=== PATIENT | female | born 1945 | race Caucasian/White ===

== ENCOUNTER → 2016-11-29 | Outpatient (CLI) | payer OTHER ==
[~2016-11-29] MED LIST: ASPIR 8181 MG PO; BACTRIM DS TAB1 EACH PO; CALTRATE 600 +1 EAC1 PO; LEVOTHYROXINE100 MCG PO; LORAZEPAM0.5 MG PO; MEDROL DOSEPAK 24 MG PO; MONTELUKAST SOD10 MG PO; NORVASC 5 MG TAB5 MG PO; OMEPRAZOLE20 M1 PO; OMNICEF 300 MG300 MG PO; SERTRALINE HCL50 MG PO; TENORMIN 50 MG50 MG PO; TESSALON PERLE100 MG PO
== END ==
LOC: MAMO 11-08 15:20
DX: Z12.31 Encounter for screening mammogram for malignant neoplasm of breast (principal)
CPT/HCPCS: G0202

== ENCOUNTER → 2017-01-03 | Day surgery (SDC) | payer OTHER | END | disposition home or self-care (01) | LOC: OR 06:48 | PROVIDERS: Internal Medicine Gastroenterology | PROC: 0DBN8ZX Excision of Sigmoid Colon, Via Natural or Artificial Opening Endoscopic, Diagnostic (ICD-10-PCS; 2017-01-03) | PROC: 0DBE8ZX Excision of Large Intestine, Via Natural or Artificial Opening Endoscopic, Diagnostic (ICD-10-PCS; 2017-01-03) | PROC: 0DBB8ZX Excision of Ileum, Via Natural or Artificial Opening Endoscopic, Diagnostic (ICD-10-PCS; 2017-01-03) | PROC: 0DBH8ZX Excision of Cecum, Via Natural or Artificial Opening Endoscopic, Diagnostic (ICD-10-PCS; 2017-01-03) | PROC: 0DBK8ZX Excision of Ascending Colon, Via Natural or Artificial Opening Endoscopic, Diagnostic (ICD-10-PCS; principal; 2017-01-03 09:00) | DX: D12.0 Benign neoplasm of cecum (principal); D12.5 Benign neoplasm of sigmoid colon; K63.5 Polyp of colon; K64.0 First degree hemorrhoids; I10 Essential (primary) hypertension; E07.9 Disorder of thyroid, unspecified; K21.9 Gastro-esophageal reflux disease without esophagitis; M19.90 Unspecified osteoarthritis, unspecified site; Z79.82 Long term (current) use of aspirin; Z79.899 Other long term (current) drug therapy; Z86.718 Personal history of other venous thrombosis and embolism; Z86.73 Personal history of transient ischemic attack (TIA), and cerebral infarction without residual deficits; Z90.710 Acquired absence of both cervix and uterus; Z98.41 Cataract extraction status, right eye; Z98.42 Cataract extraction status, left eye | CPT/HCPCS: J7030 ==

== ENCOUNTER 2017-01-20 20:44 | Inpatient (IN) | payer OTHER ==
[~2017-01-20] VITALS: Ht 167.6 cm; Wt 80.7 kg
[~2017-01-20 20:44] MED LIST changes: -BACTRIM DS TAB1 EACH PO; -MEDROL DOSEPAK 24 MG PO; -OMNICEF 300 MG300 MG PO; -TESSALON PERLE100 MG PO
[2017-01-20 22:33] LABS: HEMOGLOBIN 14.6 gm/dl (12.3-15.3); RED BLOOD COUNT 4.63 M/UL (4.00-5.10)
[2017-01-21] MEDS ORDERED: OMNICEF 300 MG300 MG PO (04:57)
[2017-01-21] MEDS ORDERED: MEDROL DOSEPAK 24 MG PO (04:58)
[2017-01-21 07:56] LABS: BUN/CREATININE RATIO 21 (0-10)
[2017-01-21 08:41] LABS: HEMOGLOBIN 13.4 gm/dl (12.3-15.3); RED BLOOD COUNT 4.36 M/UL (4.00-5.10)
[2017-01-21 08:54] LABS: WHITE BLOOD COUNT 12.2 K/UL (4.5-11.0)
[2017-01-21 14:52] LABS: ACINETOBACTER BAUMANNII Not Detected (Negative); CANDIDA ALBICANS Not Detected (Negative); CANDIDA KRUSEI Not Detected (Negative); CANDIDA TROPICALIS Not Detected (Negative); ENTEROCOCCUS Not Detected (Negative); HAEMOPHILUS INFLUENZAE Not Detected (Negative); KLEBSIELLA OXYTOCA Not Detected (Negative); KLEBSIELLA PNEUMONIAE Not Detected (Negative); KPC-CARBAPENEM-RESISTANCE GENE Not Detected (Negative); PROTEUS Not Detected (Negative); PSEUDOMONAS AERUGINOSA Not Detected (Negative); SERRATIA MARCESANS Not Detected (Negative); STAPHYLOCOCCUS Not Detected (Negative); STAPHYLOCOCCUS AUREUS Not Detected (Negative); STREP AGALACTIAE (GROUP B) Not Detected (Negative); STREP PYOGENES (GROUP A) Not Detected (Negative); STREPTOCOCCUS Not Detected (Negative); mecA (METHICILLIN RESIST GENE Not Detected (Negative); vanA/B (VANCOMYCIN RESIST GENE Not Detected (Negative)
[2017-01-21 16:04] LABS: ESCHERICHIA COLI DETECTED (Negative)
[2017-01-22 06:18] LABS: HEMOGLOBIN 12.9 gm/dl (12.3-15.3); RED BLOOD COUNT 4.25 M/UL (4.00-5.10); WHITE BLOOD COUNT 9.5 K/UL (4.5-11.0)
[2017-01-22 06:36] LABS: BUN/CREATININE RATIO 16 (0-10)
[2017-01-23 05:06] LABS: HEMOGLOBIN 13.4 gm/dl (12.3-15.3); RED BLOOD COUNT 4.37 M/UL (4.00-5.10); WHITE BLOOD COUNT 9.9 K/UL (4.5-11.0)
[2017-01-23 05:21] LABS: BUN/CREATININE RATIO 14 (0-10)
[2017-01-23] MEDS ORDERED: BACTRIM DS TAB1 EACH PO (10:29)
[2017-01-23] MEDS ORDERED: TESSALON PERLE100 MG PO (10:30)
== END 2017-01-23 12:30 | disposition home or self-care (01) | DRG 189 ==
LOC: ER1 20:44 → ZEROF 01-21 03:00 → MED SURG 4 01-21 03:00
PROVIDERS: Physician Assistant; ADMIT Family Medicine
DX: J96.00 Acute respiratory failure, unspecified whether with hypoxia or hypercapnia (principal); J11.00 Influenza due to unidentified influenza virus with unspecified type of pneumonia; J18.9 Pneumonia, unspecified organism; N39.0 Urinary tract infection, site not specified; R10.9 Unspecified abdominal pain; R00.0 Tachycardia, unspecified; R51 Headache; M79.1 Myalgia; I10 Essential (primary) hypertension; F41.9 Anxiety disorder, unspecified; E03.9 Hypothyroidism, unspecified; E78.5 Hyperlipidemia, unspecified; F32.9 Major depressive disorder, single episode, unspecified; Z88.8 Allergy status to other drugs, medicaments and biological substances; Z86.73 Personal history of transient ischemic attack (TIA), and cerebral infarction without residual deficits; Z87.440 Personal history of urinary (tract) infections; Z79.899 Other long term (current) drug therapy; Z79.82 Long term (current) use of aspirin; Z83.3 Family history of diabetes mellitus; Z84.1 Family history of disorders of kidney and ureter
CPT/HCPCS: 36415; 36600; 71020; 80048; 80053; 81001; 82550; 82553; 82803; 83605; 83874; 83880; 84484; 85025; 87040; 87077; 87086; 87150; 87186; 93005; 94640; 96361; 96374; 99285; J0696; J1650; J2405; J7030; J7050; Q0162; Q9962

== ENCOUNTER 2020-12-21 09:42 | Emergency (ER) | payer OTHER ==
[~2020-12-21 09:42] MED LIST changes: +BACTRIM DS TAB1 EACH PO; +COZAAR100 MG PO; +LOPRESSOR100 MG PO; +MEDROL DOSEPAK 24 MG PO; +NORCO 5-325 TA1 EACH PO; +NORFLEX 100 MG100 MG PO; +OMNICEF 300 MG300 MG PO; +TESSALON PERLE100 MG PO; +Voltaren Gel 1 % TOP; +Voltaren Gel 1% TOP; +ZOFRAN4 MG PO
== END 2020-12-21 10:36 | disposition home or self-care (01) ==
LOC: ER1 09:42
DX: I10 Essential (primary) hypertension (principal); K21.9 Gastro-esophageal reflux disease without esophagitis; Z88.8 Allergy status to other drugs, medicaments and biological substances; Z90.711 Acquired absence of uterus with remaining cervical stump
CPT/HCPCS: 99283

== ENCOUNTER → 2021-02-22 | Outpatient (CLI) | payer OTHER | LOC: EXRD 02-08 08:30 | DX: M81.0 Age-related osteoporosis without current pathological fracture (principal) | CPT/HCPCS: 77080 ==

== ENCOUNTER → 2021-03-09 | Outpatient (CLI) | payer OTHER | LOC: KOH-I 13:53 | DX: R05 Cough (principal); J98.11 Atelectasis | CPT/HCPCS: 71046 ==

== ENCOUNTER → 2021-05-04 | Outpatient (CLI) | payer OTHER ==
[~2021-05-04] MED LIST changes: +AMOX TR-K CLV1 EAC4 PO; +METOPROLOL SUC100 MG PO; +NORVASC10 MG PO; +SINGULAIR10 MG PO; +TRIAMCINOLONE ACE; +VITAMIN B 12 PO; +VITAMIN D21250 MCG PO
[2021-05-04 11:39] LABS: HEMOGLOBIN 15.6 gm/dl (12.3-15.3); RED BLOOD COUNT 4.99 M/UL (4.00-5.10); WHITE BLOOD COUNT 6.3 K/UL (4.5-11.0)
[2021-05-04 12:01] LABS: BUN/CREATININE RATIO 11 (0-10)
== END ==
LOC: OPSV2 09:58 → EDSTATUS 10:00
PROVIDERS: Orthopaedic Surgery
DX: Z01.818 Encounter for other preprocedural examination (principal); M48.061 Spinal stenosis, lumbar region without neurogenic claudication
CPT/HCPCS: 71046; 80048; 81001; 85027; 85610; 85730; 93005

== ENCOUNTER → 2021-05-16 | Outpatient (CLI) | payer OTHER | LOC: LAB 12:22 | PROVIDERS: Orthopaedic Surgery | DX: Z01.812 Encounter for preprocedural laboratory examination (principal) | CPT/HCPCS: 80048; 86850; 86900; 86901 ==

== ENCOUNTER 2021-05-17 08:01 | Inpatient (IN) | payer OTHER ==
[~2021-05-17] VITALS: Ht 167.6 cm; Wt 83.5 kg
[~2021-05-17 08:01] MED LIST changes: -AMOX TR-K CLV1 EAC4 PO
[2021-05-17 13:54] LABS: HEMOGLOBIN 14.8 gm/dl (12.3-15.3); RED BLOOD COUNT 4.8 M/UL (4.00-5.10); WHITE BLOOD COUNT 9.5 K/UL (4.5-11.0)
[2021-05-17] MEDS ORDERED: METOPROLOL SUC100 MG PO (20:01)
[2021-05-18 06:47] LABS: HEMOGLOBIN 13.6 gm/dl (12.3-15.3); RED BLOOD COUNT 4.38 M/UL (4.00-5.10); WHITE BLOOD COUNT 10.5 K/UL (4.5-11.0)
[2021-05-18 07:06] LABS: BUN/CREATININE RATIO 12 (0-10)
[2021-05-19 07:23] LABS: HEMOGLOBIN 12.6 gm/dl (12.3-15.3); RED BLOOD COUNT 4.29 M/UL (4.00-5.10); WHITE BLOOD COUNT 10.2 K/UL (4.5-11.0)
[2021-05-19 07:43] LABS: BUN/CREATININE RATIO 14 (0-10)
--- NOTE | 2021-05-19 10:49 | NUR ---
PATIENT'S HEMOVAC TO LOWER BACK REMOVED PER DR. ALCALA INSTRTUCTION. PATIENT TOLERATED WELL.
--- NOTE | 2021-05-19 19:40 | NUR ---
NOTIFIED [facility] [employer] [facility] THAT I HAD TRIED TO CONTACT MULTIPLE TIMES WITHOUT ANY SUCCESS.
--- NOTE | 2021-05-20 01:20 | NUR ---
PT IS CURRENTLY ON 4L NC. PT'S O2 SATURATION WILL DROP INTO THE UPPER 70'S WHEN NASAL CANNULA COMES OUT OF HER NOSE.
[2021-05-20 07:00] LABS: HEMOGLOBIN 12.3 gm/dl (12.3-15.3); RED BLOOD COUNT 4.1 M/UL (4.00-5.10); WHITE BLOOD COUNT 8.2 K/UL (4.5-11.0)
[2021-05-20 07:23] LABS: BUN/CREATININE RATIO 12 (0-10)
[2021-05-21 03:12] LABS: HEMOGLOBIN 13.1 gm/dl (12.3-15.3); RED BLOOD COUNT 4.24 M/UL (4.00-5.10); WHITE BLOOD COUNT 6.8 K/UL (4.5-11.0)
[2021-05-21 04:08] LABS: BUN/CREATININE RATIO 9 (0-10)
[2021-05-21 13:14] LABS: ORGANISM ID Not indicated. (.); SPECIMEN SOURCE Urine (.); STREPTOCOCCUS PNEUMONIAE AG Negative (Negative)
[2021-05-22 05:42] LABS: HEMOGLOBIN 13.2 gm/dl (12.3-15.3); RED BLOOD COUNT 4.17 M/UL (4.00-5.10); WHITE BLOOD COUNT 6.1 K/UL (4.5-11.0)
[2021-05-22 06:12] LABS: BUN/CREATININE RATIO 12 (0-10)
[2021-05-23 06:52] LABS: HEMOGLOBIN 14.2 gm/dl (12.3-15.3); RED BLOOD COUNT 4.59 M/UL (4.00-5.10); WHITE BLOOD COUNT 6.1 K/UL (4.5-11.0)
[2021-05-23 07:26] LABS: BUN/CREATININE RATIO 12 (0-10)
[2021-05-24 05:29] LABS: HEMOGLOBIN 13.5 gm/dl (12.3-15.3); RED BLOOD COUNT 4.35 M/UL (4.00-5.10); WHITE BLOOD COUNT 6.6 K/UL (4.5-11.0)
[2021-05-24 05:58] LABS: BUN/CREATININE RATIO 13 (0-10)
[2021-05-25 06:31] LABS: HEMOGLOBIN 13.4 gm/dl (12.3-15.3); RED BLOOD COUNT 4.38 M/UL (4.00-5.10); WHITE BLOOD COUNT 7.2 K/UL (4.5-11.0)
[2021-05-25 06:55] LABS: BUN/CREATININE RATIO 12 (0-10)
--- NOTE | 2021-05-25 11:24 | NUR ---
Patient sat 96 sitting on room air. Patients sat 94 on room air while up walking.
[2021-05-25] MEDS ORDERED: AMOX TR-K CLV1 EAC4 PO (13:41)
--- NOTE | 2021-05-25 14:58 | NUR ---
REPORT CALLED TO TIAGO AT [facility] AT THIS TIME.
== END 2021-05-25 15:00 | disposition home health service (06) | DRG 518 ==
LOC: OR 08:01 → EDSTATUS 09:45 → M/S 19:27 → OR 19:28 → M/S 19:28
PROVIDERS: Internal Medicine; Physician Assistant; ADMIT Orthopaedic Surgery
PROC: 01NB0ZZ Release Lumbar Nerve, Open Approach (ICD-10-PCS; principal; 2021-05-17 09:45)
PROC: 00NY0ZZ Release Lumbar Spinal Cord, Open Approach (ICD-10-PCS; principal; 2021-05-17 09:45)
DX: M48.061 Spinal stenosis, lumbar region without neurogenic claudication (principal); J96.01 Acute respiratory failure with hypoxia; J69.0 Pneumonitis due to inhalation of food and vomit; J98.11 Atelectasis; J44.0 Chronic obstructive pulmonary disease with (acute) lower respiratory infection; I10 Essential (primary) hypertension; Z20.822 Contact with and (suspected) exposure to COVID-19; E03.9 Hypothyroidism, unspecified; E87.6 Hypokalemia; M54.16 Radiculopathy, lumbar region; K21.9 Gastro-esophageal reflux disease without esophagitis; R32 Unspecified urinary incontinence; K59.00 Constipation, unspecified; F32.9 Major depressive disorder, single episode, unspecified; F41.9 Anxiety disorder, unspecified; M81.0 Age-related osteoporosis without current pathological fracture; G89.29 Other chronic pain; M54.9 Dorsalgia, unspecified; Z90.89 Acquired absence of other organs; Z79.890 Hormone replacement therapy; Z88.8 Allergy status to other drugs, medicaments and biological substances; Z83.3 Family history of diabetes mellitus; Z82.3 Family history of stroke; Z98.890 Other specified postprocedural states; Z79.82 Long term (current) use of aspirin; Z99.81 Dependence on supplemental oxygen; Z68.29 Body mass index [BMI] 29.0-29.9, adult
CPT/HCPCS: 36415; 71045; 71046; 71250; 72020; 76000; 80048; 80053; 80202; 83735; 84132; 85025; 85027; 86850; 86900; 86901; 87278; 87899; 94640; 94760; 97116; 97116-GP-CQ; 97162; 97166; 97530; 97530-GP-CQ; 97535; C1781; J0690; J1040; J1100; J1170; J1644; J2001; J2405; J2543; J2704; J2710; J3010; J3370; J7040; J7070; J7120; U0002

== ENCOUNTER → 2021-06-15 | Outpatient (CLI) | payer OTHER ==
[~2021-06-15] MED LIST changes: +AMOX TR-K CLV1 EAC4 PO
== END ==
LOC: KOH-I 09:58
DX: J69.0 Pneumonitis due to inhalation of food and vomit (principal)
CPT/HCPCS: 71046

== ENCOUNTER → 2022-02-02 | Outpatient (CLI) | payer OTHER | LOC: HEART 5 10:18 | DX: R06.02 Shortness of breath (principal) | CPT/HCPCS: 71046; 94060; 94729 ==

== ENCOUNTER → 2022-02-02 | Outpatient (CLI) | payer OTHER | LOC: RT 12:54 | DX: R06.02 Shortness of breath (principal) | CPT/HCPCS: 36600; 82803 ==